=== PATIENT | female | born 1980 | race Caucasian/White ===

== ENCOUNTER 2023-08-28 19:02 | Emergency (ER) | payer OTHER ==
[~2023-08-28] VITALS: Ht 167.6 cm; Wt 63.0 kg
[2023-08-28 19:20] VITALS: BP 127/82; PULSE 95; RESP 16; TEMP 97.7; O2SAT 99
[2023-08-28 19:33] VITALS: O2SAT 98
[2023-08-28 20:03] VITALS: BP 121/82; PULSE 67; RESP 16; TEMP 98.1
[2023-08-28 20:06] VITALS: O2SAT 97
[2023-08-28] MEDS: KETOROLAC 30 MG/ML VIAL IM ONE (20:29)
[2023-08-28] MEDS: ACETAMINOPHEN EXTRA STRENGTH 500 MG TAB PO ONE (20:31)
== END 2023-08-28 20:40 | disposition home or self-care (01) ==
LOC: MED 19:02
DX: M54.12 Radiculopathy, cervical region (principal); M25.512 Pain in left shoulder; M79.602 Pain in left arm; R20.2 Paresthesia of skin
CPT/HCPCS: 81025; 96372; 99283; J1885